=== PATIENT | female | born 1965 | race Caucasian/White ===

== ENCOUNTER 2021-04-12 09:59 | Emergency (ER) | payer BC ==
--- NOTE | 2021-04-12 12:07 | EDM.PDOC ---
ED HPI GENERAL MEDICAL PROBLEM - General Chief Complaint: Skin Complaint Stated Complaint: ALLERGIC REACTION Time Seen by Provider: 04/12/21 11:58 Source of Information: Reports: Patient, Family, RN Notes Reviewed History Limitations: Reports: No Limitations - History of Present Illness INITIAL COMMENTS - FREE TEXT/NARRATIVE: 55-year-old female presents emergency department today with a developing rash that started over the last couple of days it has progressively gotten worse started initially around her mouth and spread to her face ears now is on her trunk and arms. She states she has no difficulty breathing no difficulty swallowing no new medications no new products that she can think of. She tried Palma yesterday - Related Data Allergies Allergy/AdvReac Type Severity Reaction Status Date / Time amoxicillin Allergy Rash Verified 04/12/21 11:29 gold Au 198 Allergy Rash Verified 04/12/21 11:29 Home Meds: Home Meds Levothyroxine 125 mcg PO ACBREAKFAST 04/12/21 [History] Liothyronine [Cytomel] 25 mcg PO DAILY 04/12/21 [History] Progesterone, Micronized [Progesterone] 100 mg PO DAILY 04/12/21 [History] Past Medical History HEENT History: Reports: Impaired Vision BALL WINDER History: Reports: , Spontaneous Musculoskeletal History: Reports: Arthritis, Fracture Endocrine/Metabolic History: Reports: Hypothyroidism, Obesity/BMI 30+ - Infectious Disease History Infectious Disease History: Reports: Influenza Social & Family History - Tobacco Use Tobacco Use Status *Q: Never Tobacco User - Caffeine Use Caffeine Use: Reports: Tea - Alcohol Use Days Per Week of Alcohol Use: 7 Number of Drinks Per Day: 3 Total Drinks Per Week: 21 - Recreational Drug Use Recreational Drug Use: No ED ROS GENERAL - Review of Systems Review Of Systems: See Below Constitutional: Reports: No Symptoms HEENT: Reports: No Symptoms Respiratory: Reports: No Symptoms Cardiovascular: Reports: No Symptoms GI/Abdominal: Reports: No Symptoms Skin: Reports: Rash ED EXAM, SKIN/RASH Exam: See Below Text/Narrative:: Examination of the integument system rash multiple patches consistent with hives type reaction trunk arms neck Exam Limited By: No Limitations General Appearance: Alert, WD/WN, No Apparent Distress Throat/Mouth: Normal Inspection, Normal Lips, Normal Teeth, Normal Gums, Normal Oropharynx, Normal Voice, No Airway Compromise Respiratory/Chest: No Respiratory Distress, Lungs Clear, Normal Breath Sounds, No Accessory Muscle Use, Chest Non-Tender Cardiovascular: Regular Rate, Rhythm, No Murmur Course - Vital Signs Last Recorded V/S: Last Vital Signs Temp 97.8 F 04/12/21 11:36 Pulse 68 04/12/21 11:36 Resp 16 04/12/21 11:36 BP 155/85 H 04/12/21 11:36 Pulse Ox 100 04/12/21 11:36 Departure - Departure Time of Disposition: 12:06 Disposition: Home, Self-Care 01 Condition: Fair Clinical Impression: Urticaria - Discharge Information Instructions: Hives Referrals: PCP,None [Primary Care Provider] - Additional Instructions: Take full course of prednisone, use Benadryl as needed to control symptoms, please follow-up with your primary care upon return home if not better call return to the emergency department worsening of symptoms Sepsis Event Note (ED) - Evaluation Sepsis Screening Result: No Definite Risk - Focused Exam Vital Signs: Vital Signs Temp Pulse Resp BP Pulse Ox 04/12/21 11:36 97.8 F 68 16 155/85 H 100 04/12/21 11:27 97.8 F 68 16 155/85 H 100 - Assessment/Plan Plan: Assessment Acuity = acute Site and laterality = Urticaria Etiology = unknown Manifestations = none Location of injury = Home Lab values = none Plan Like to treat empirically Benadryl 25-50 mg p.o. every 6 hours as needed total #24, prednisone 20 mg once a day for 5 days follow-up primary care upon return home if not better This note was dictated using [employer] voice recognition software please call with any questions on syntax or grammar.
== END 2021-04-12 12:23 | disposition home or self-care (01) ==
LOC: JP.ED 09:59
DX: L50.9 Urticaria, unspecified (principal); E03.9 Hypothyroidism, unspecified; E66.9 Obesity, unspecified; Z88.0 Allergy status to penicillin; Z91.048 Other nonmedicinal substance allergy status; Z79.899 Other long term (current) drug therapy; Z68.36 Body mass index [BMI] 36.0-36.9, adult
CPT/HCPCS: 99283